=== PATIENT | male | born 1960 ===

== ENCOUNTER 2017-04-17 12:24 | Emergency (ER) | payer OTHER ==
[2017-04-17] MEDS ORDERED: CLOPIDOGREL 75 MG TAB PO ONE (12:41)
[2017-04-17] MEDS ORDERED: CLOPIDOGREL 75 MG TAB ONE (12:44)
[2017-04-17 12:54] LABS: BASOPHILS % (AUTO) 1 % (0-3); EOSINOPHILS % (AUTO) 2 % (0-9); HEMATOCRIT 42 % (39-53); MEAN CORPUSCULAR HGB CONC 35.7 gm/dl (32.0-36.0); MONOCYTES % (AUTO) 7.5 % (0-12); NEUTROPHILS % (AUTO) 53.8 % (37-80)
[2017-04-17 12:59] LABS: MEAN CORPUSCULAR VOLUME 100 fL (80-100)
[2017-04-17 13:11] LABS: ALBUMIN 3.1 gm/dl (3.4-5.0); ALT 11 IU/L (14-63); CALCIUM 8.1 mg/dl (8.5-10.1); GLOM FILT RATE 128 mL/min (>60); POTASSIUM 3.4 mMol/L (3.5-5.1); SODIUM 138 mMol/L (136-145)
[2017-04-17 13:12] VITALS: TEMP 99
[2017-04-17] MEDS ORDERED: SODIUM CHLORIDE 0.9% 1000ML 1,000 ML IV ONE (13:20)
[2017-04-17] MEDS ORDERED: KETOROLAC TROMETHAMINE 30 MG/ML SOL IV ONE (13:20)
[2017-04-17] MEDS ORDERED: KETOROLAC TROMETHAMINE 30 MG/ML SOL ONE (13:21)
[2017-04-17] MEDS ORDERED: POTASSIUM CHLORIDE 10 MEQ TER PO ONE (13:21)
[2017-04-17] MEDS ORDERED: POTASSIUM CHLORIDE 10 MEQ TER ONE (13:23)
[2017-04-17 13:27] LABS: APPEARANCE,URINE Clear; BILIRUBIN,URINE NEGATIVE (NEGATIVE); COLOR,URINE Yellow; GLUCOSE, URINE (UA) NEGATIVE (NEGATIVE); KETONES,URINE NEGATIVE (NEGATIVE); LEUKOCYTE ESTERASE ,URINE NEGATIVE (NEGATIVE); NITRATE,URINE NEGATIVE (NEGATIVE); OCCULT BLOOD,URINE NEGATIVE (NEG-TRACE); PH,URINE 5.5; UROBILINOGEN,URINE 0.2 (0.2-1.0 EU)
[2017-04-17 13:28] LABS: NORMAL RBCS NORMAL RBCS
[2017-04-17] MEDS ORDERED: LIDOCAINE HCL 2% MPF SOL SC ONE (13:29)
[2017-04-17] MEDS ORDERED: LIDOCAINE HCL 2% MPF SOL ONE (13:30)
[2017-04-17 13:37] LABS: METHADONE NEGATIVE (NEGATIVE); RBC,URINE 0-2 (0-3AV/HPF); TRICYCLIC ANTIDEPRESSANTS NEGATIVE (NEGATIVE); WBC,URINE 0-2 (0-5AV/HPF)
[2017-04-17 13:38] LABS: AMPHETAMINES POSITIVE (NEGATIVE); OPIATES(OP13) NEGATIVE (NEGATIVE); OXYCODONE(OXY) NEGATIVE (NEGATIVE); PROPOXYPHENE(PPX) NEGATIVE (NEGATIVE)
[2017-04-17] MEDS ORDERED: TDAP VACCINE 0.5 ML SUS IM ONE ×2 (15:02→15:05)
[2017-04-17 15:42] VITALS: BP 110/70; PULSE 80; RESP 16; O2SAT 97
== END 2017-04-17 15:36 ==
LOC: ED 12:24
DX: S62.396A Other fracture of fifth metacarpal bone, right hand, initial encounter for closed fracture (principal); S62.341A Nondisplaced fracture of base of second metacarpal bone, left hand, initial encounter for closed fracture; Y09 Assault by unspecified means; R00.0 Tachycardia, unspecified; S20.212A Contusion of left front wall of thorax, initial encounter; F10.129 Alcohol abuse with intoxication, unspecified; F12.10 Cannabis abuse, uncomplicated; F15.10 Other stimulant abuse, uncomplicated; Y90.6 Blood alcohol level of 120-199 mg/100 ml; E87.6 Hypokalemia; E88.09 Other disorders of plasma-protein metabolism, not elsewhere classified
CPT/HCPCS: 99285 ×3; 73130 ×3; 80053; 80305; 80307; 81001; 82550; 84484 ×2; 85025; 86140; 90715; 93005; J1885; 36415; 71101

== ENCOUNTER 2017-04-30 10:12 | Outpatient (CLI) | payer OTHER ==
[2017-04-17 15:42] VITALS: O2SAT 97
== END 2017-04-30 10:13 | disposition home or self-care (01) ==
LOC: CONVCARE 10:12
PROVIDERS: ATTEND Orthopaedic Surgery
DX: S62.341D Nondisplaced fracture of base of second metacarpal bone, left hand, subsequent encounter for fracture with routine healing (principal); S62.334D Displaced fracture of neck of fourth metacarpal bone, right hand, subsequent encounter for fracture with routine healing; S62.336D Displaced fracture of neck of fifth metacarpal bone, right hand, subsequent encounter for fracture with routine healing
CPT/HCPCS: 73130

== ENCOUNTER 2017-05-14 11:08 | Outpatient (CLI) | payer OTHER ==
[2017-04-17 15:42] VITALS: O2SAT 97
== END 2017-05-14 11:09 | disposition home or self-care (01) ==
LOC: CONVCARE 11:08
PROVIDERS: ATTEND Orthopaedic Surgery
DX: S62.334D Displaced fracture of neck of fourth metacarpal bone, right hand, subsequent encounter for fracture with routine healing (principal); S62.336D Displaced fracture of neck of fifth metacarpal bone, right hand, subsequent encounter for fracture with routine healing; S62.311D Displaced fracture of base of second metacarpal bone, left hand, subsequent encounter for fracture with routine healing
CPT/HCPCS: 73130

== ENCOUNTER 2017-11-13 13:25 | Emergency (ER) | payer OTHER ==
[2017-11-13 13:32] VITALS: BP 119/78; PULSE 123; RESP 20; TEMP 97; O2SAT 99
== END 2017-11-13 14:19 | disposition home or self-care (01) ==
LOC: ED 13:25
DX: F20.9 Schizophrenia, unspecified (principal)
CPT/HCPCS: 99282

== ENCOUNTER 2018-09-18 10:11 | Inpatient (IN) | payer BC, OTHER | END 2018-09-24 14:55 | disposition other institution (70) | LOC: ED 10:11 → ACUTE CARE 11:34 ==